=== PATIENT | male | born 1960 | race Caucasian/White ===

== ENCOUNTER 2020-01-25 11:29 | Outpatient (REF) | payer MEDICAID, SELFPAY ==
[2020-01-25 13:44] LABS: Hematocrit 44.1 % (42-52); Hemoglobin 14.1 g/dl (14.0-18.0); Mean Corpuscular Hemoglobin 29.8 pg (27.0-33.0); Mean Corpuscular Volume 93.2 fL (80-98); Mean Platelet Volume 9.4 fL (9.4-12.4); Platelet Count 313 X10*3/uL (160-400); Red Blood Count 4.73 X10*6/uL (4.60-5.80); White Blood Count 7.8 X10*3/uL (4.8-10.8)
[2020-01-25 14:17] LABS: Alanine Aminotransferase 34 U/L (0-40); Albumin Level 4.2 g/dL (3.5-5.0); Alkaline Phosphatase 72 U/L (39-117); Anion Gap 10 (12-20); Aspartate Amino Transferase 24 U/L (5-37); Bilirubin Direct 0.2 mg/dL (0.0-0.5); Bilirubin Total 0.3 mg/dL (0.0-1.0); Blood Urea Nitrogen 14 mg/dL (9-16); Calcium 8.8 mg/dL (8.4-10.2); Carbon Dioxide 29 mmol/L (22-29); Chloride 103 mmol/L (96-108); Cholesterol 230 mg/dL; Estimated Glomerular Filt Rate > 60; Glucose Fasting 150 mg/dL (60-99); HDL Cholesterol 61 mg/dL; LDL Cholesterol Calculated 138 mg/dl; Magnesium 2.2 mg/dL (1.6-2.6); Potassium 4.4 mmol/l (3.3-5.1); Sodium 138 mmol/L (135-145); Triglycerides 158 mg/dL
== END 2020-01-25 11:30 | disposition home or self-care (01) ==
LOC: HO.10HDL 11:29
DX: Z00.00 Encounter for general adult medical examination without abnormal findings (principal); I10 Essential (primary) hypertension
CPT/HCPCS: 36415; 80053; 80061; 80076; 82248; 83735; 85027

== ENCOUNTER 2020-11-14 10:41 | Outpatient (REF) | payer OTHER, SELFPAY ==
[2020-11-14 13:34] LABS: MANUAL DIFF FLAG NO
[2020-11-14 13:43] LABS: Basophils Percent Auto 0.3 % (0-2); Eosinophils Absolute Auto 0.3 X10*3/uL (0.0-0.4); Eosinophils Percent Auto 3.2 % (0-4); Hematocrit 43.2 % (42-52); Imm Gran Abs Auto 0.04 X10*3/uL (0.00-0.03); Imm Gran Pct Auto 0.4 % (0.0-0.4); Lymphocytes Absolute Auto 1.7 X10*3/uL (1.2-4.9); Lymphocytes Percent Auto 17.6 % (20-40); Mean Corpuscular HGB Conc 32.4 g/dl (31.0-36.0); Mean Corpuscular Hemoglobin 29.1 pg (27.0-33.0); Mean Corpuscular Volume 89.8 fL (80-98); Mean Platelet Volume 9.3 fL (9.4-12.4); Monocytes Absolute Auto 0.8 X10*3/uL (0.1-1.2); Monocytes Percent Auto 8.3 % (2-11); Neutrophils Absolute Auto 6.7 X10*3/uL (2.0-8.3); Neutrophils Percent Auto 70.2 % (45-73); Platelet Count 327 X10*3/uL (160-400); Red Blood Count 4.81 X10*6/uL (4.60-5.80); Red Cell Distribution Width 14.7 % (11.0-16.0); White Blood Count 9.5 X10*3/uL (4.8-10.8)
[2020-11-14 13:52] LABS: Estimated Average Glucose 131 mg/dL; Hemoglobin A1c % 6.2 %
[2020-11-14 14:11] LABS: Alanine Aminotransferase 26 U/L (0-40); Albumin Level 4.4 g/dL (3.5-5.0); Alkaline Phosphatase 91 U/L (39-117); Anion Gap 10 (12-20); Aspartate Amino Transferase 20 U/L (5-37); Bilirubin Total 0.5 mg/dL (0.0-1.0); Blood Urea Nitrogen 14 mg/dL (9-16); Calcium 9.4 mg/dL (8.4-10.2); Carbon Dioxide 27 mmol/L (22-29); Chloride 108 mmol/L (96-108); Cholesterol 223 mg/dL; Estimated Glomerular Filt Rate > 60; Glucose Random 143 mg/dL (60-115); HDL Cholesterol 61 mg/dL; LDL Cholesterol Calculated 139 mg/dl; Potassium 4.2 mmol/L (3.3-5.1); Sodium 141 mmol/L (135-145); Total Protein 7.6 g/dL (6.5-8.0); Triglycerides 116 mg/dL
[2020-11-14 14:39] LABS: Free T4 (Free Thyroxine) 0.92 ng/dL (0.71-1.85); Prostate Specific Antigen Scr 0.29 ng/mL (<0.05-4.0); Thyroid Stimulating Hormone 2.96 uIU/mL (0.32-4.0)
[2020-11-14 14:46] LABS: Folate 19.2 ng/mL (> or = 4.0); Vitamin B12 499 pg/mL (200-900)
== END 2020-11-14 10:42 | disposition home or self-care (01) ==
LOC: HO.10HDL 10:41
PROVIDERS: Visit Provider Internal Medicine
DX: Z12.5 Encounter for screening for malignant neoplasm of prostate (principal); R73.01 Impaired fasting glucose; E78.00 Pure hypercholesterolemia, unspecified; N48.6 Induration penis plastica; I10 Essential (primary) hypertension
CPT/HCPCS: 36415; 80053; 80061; 82607; 82746; 83036; 84153; 84439; 84443; 85025

== ENCOUNTER 2021-05-27 12:17 | Outpatient (REF) | payer OTHER, SELFPAY ==
[2021-05-27 13:49] LABS: Alanine Aminotransferase 21 U/L (0-40); Albumin Level 4.2 g/dL (3.5-5.0); Alkaline Phosphatase 84 U/L (39-117); Anion Gap 12 (12-20); Aspartate Amino Transferase 17 U/L (5-37); Bilirubin Total 0.5 mg/dL (0.0-1.0); Blood Urea Nitrogen 13 mg/dL (9-16); Calcium 9.3 mg/dL (8.4-10.2); Carbon Dioxide 27 mmol/L (22-29); Chloride 107 mmol/L (96-108); Cholesterol 236 mg/dL; Estimated Glomerular Filt Rate > 60; Glucose Random 143 mg/dL (60-115); HDL Cholesterol 57 mg/dL; LDL Cholesterol Calculated 150 mg/dl; Potassium 4.5 mmol/L (3.3-5.1); Sodium 141 mmol/L (135-145); Total Protein 7.5 g/dL (6.5-8.0); Triglycerides 147 mg/dL
[2021-05-27 14:07] LABS: Estimated Average Glucose 128 mg/dL; Hemoglobin A1c % 6.1 %
== END 2021-05-27 12:18 | disposition home or self-care (01) ==
LOC: HO.10HDL 12:17
PROVIDERS: Visit Provider Internal Medicine
DX: E78.00 Pure hypercholesterolemia, unspecified (principal); E11.65 Type 2 diabetes mellitus with hyperglycemia
CPT/HCPCS: 36415; 80053; 80061; 83036

== ENCOUNTER 2022-04-07 12:18 | Outpatient (REF) | payer OTHER, SELFPAY ==
[2022-04-07 14:32] LABS: Alanine Aminotransferase 11 U/L (0-40); Alkaline Phosphatase 82 U/L (39-117); Anion Gap 15 (12-20); Aspartate Amino Transferase 11 U/L (5-37); Bilirubin Total 0.3 mg/dL (0.0-1.0); Blood Urea Nitrogen 13 mg/dL (9-16); Calcium 9.1 mg/dL (8.4-10.2); Carbon Dioxide 26 mmol/L (22-29); Chloride 105 mmol/L (96-108); Cholesterol 216 mg/dL; Estimated Glomerular Filt Rate > 60; Glucose Random 136 mg/dL (60-115); HDL Cholesterol 48 mg/dL; LDL Cholesterol Calculated 142 mg/dl; Potassium 4.6 mmol/L (3.3-5.1); Sodium 141 mmol/L (135-145); Total Protein 7.8 g/dL (6.5-8.0); Triglycerides 132 mg/dL
[2022-04-07 14:45] LABS: Estimated Average Glucose 146 mg/dL; Hemoglobin A1c % 6.7 %
== END 2022-04-07 12:19 | disposition home or self-care (01) ==
LOC: HO.10HDL 12:18
PROVIDERS: Visit Provider Internal Medicine
DX: E78.00 Pure hypercholesterolemia, unspecified (principal)
CPT/HCPCS: 36415; 80053; 80061; 83036

== ENCOUNTER 2022-07-04 11:46 | Outpatient (REF) | payer OTHER, SELFPAY ==
[2022-07-04 13:18] LABS: MANUAL DIFF FLAG NO
[2022-07-04 13:27] LABS: Basophils Percent Auto 0.3 % (0-2); Eosinophils Absolute Auto 0.3 X10*3/uL (0.0-0.4); Eosinophils Percent Auto 3.8 % (0-4); Hematocrit 39.3 % (42.0-52.0); Hemoglobin 12.2 g/dl (14.0-18.0); Imm Gran Abs Auto 0.05 X10*3/uL (0.00-0.03); Imm Gran Pct Auto 0.6 % (0.0-0.4); Lymphocytes Absolute Auto 1.5 X10*3/uL (1.2-4.9); Lymphocytes Percent Auto 17.2 % (20-40); Mean Corpuscular Hemoglobin 26.7 pg (27.0-33.0); Monocytes Absolute Auto 0.8 X10*3/uL (0.1-1.2); Monocytes Percent Auto 8.5 % (2-11); Neutrophils Absolute Auto 6.2 x10*3/uL (2.0-8.3); Neutrophils Percent Auto 69.6 % (45-73); Platelet Count 405 X10*3/uL (160-400); Red Blood Count 4.57 X10*6/uL (4.60-5.80); Red Cell Distribution Width 16.1 % (11.0-16.0)
[2022-07-04 13:32] LABS: Estimated Average Glucose 131 mg/dL; Hemoglobin A1c % 6.2 %
[2022-07-04 13:47] LABS: Alanine Aminotransferase 13 U/L (0-40); Alkaline Phosphatase 87 U/L (39-117); Anion Gap 12 (12-20); Aspartate Amino Transferase 14 U/L (5-37); Bilirubin Total 0.3 mg/dL (0.0-1.0); Blood Urea Nitrogen 13 mg/dL (9-16); Calcium 8.9 mg/dL (8.4-10.2); Carbon Dioxide 26 mmol/L (22-29); Chloride 108 mmol/L (96-108); Cholesterol 208 mg/dL; Estimated Glomerular Filt Rate > 60; Glucose Random 131 mg/dL (60-115); HDL Cholesterol 53 mg/dL; LDL Cholesterol Calculated 138 mg/dl; Potassium 4.7 mmol/L (3.3-5.1); Sodium 141 mmol/L (135-145); Total Protein 7.4 g/dL (6.5-8.0); Triglycerides 87 mg/dL
[2022-07-04 14:07] LABS: Free T4 (Free Thyroxine) 0.88 ng/dL (0.71-1.85); Thyroid Stimulating Hormone 1.44 uIU/mL (0.32-4.0)
== END 2022-07-04 11:47 | disposition home or self-care (01) ==
LOC: HO.10HDL 11:46
PROVIDERS: Visit Provider Internal Medicine
DX: E11.65 Type 2 diabetes mellitus with hyperglycemia (principal); E78.00 Pure hypercholesterolemia, unspecified
CPT/HCPCS: 36415; 80053; 80061; 83036; 84439; 84443; 85025

== ENCOUNTER 2023-01-14 12:22 | Outpatient (REF) | payer OTHER, SELFPAY ==
[2023-01-14 13:28] LABS: MANUAL DIFF FLAG NO
[2023-01-14 13:45] LABS: Basophils Percent Auto 0.1 % (0-2); Eosinophils Absolute Auto 0.4 X10*3/uL (0.0-0.4); Eosinophils Percent Auto 4.2 % (0-4); Hematocrit 41.1 % (42.0-52.0); Imm Gran Abs Auto 0.04 X10*3/uL (0.00-0.03); Imm Gran Pct Auto 0.5 % (0.0-0.4); Immature Retic Fraction 11.8 % (2.3-13.4); Lymphocytes Absolute Auto 1.7 X10*3/uL (1.2-4.9); Lymphocytes Percent Auto 19.5 % (20-40); Mean Corpuscular HGB Conc 31.6 g/dl (31.0-36.0); Mean Corpuscular Hemoglobin 28.3 pg (27.0-33.0); Mean Corpuscular Volume 89.5 fL (80.0-98.0); Mean Platelet Volume 9.5 fL (9.4-12.4); Monocytes Absolute Auto 0.7 X10*3/uL (0.1-1.2); Monocytes Percent Auto 7.5 % (2-11); Neutrophils Percent Auto 68.2 % (45-73); Platelet Count 339 X10*3/uL (160-400); Red Blood Count 4.59 X10*6/uL (4.60-5.80); Red Cell Distribution Width 15.1 % (11.0-16.0); Retic HGB Equivalent 33.8 pg (30.0-35.0); Reticulocyte Percent 1.4 % (0.5-1.8); Reticulocytes Absolute 0.062 X10*6/uL (0.026-0.095); White Blood Count 8.8 X10*3/uL (4.8-10.8)
[2023-01-14 14:06] LABS: Iron 67 mcg/dL (45-160); Percent Iron Saturation 26 % (15-50); Total Iron Binding Capacity 259 mcg/dL (228-428); Unsaturated Iron Binding 192 ug/dL
[2023-01-14 14:25] LABS: Ferritin 162 ng/mL (20-250)
[2023-01-14 14:33] LABS: Folate 12.8 ng/mL (> or = 4.0); Vitamin B12 413 pg/mL (200-900)
== END 2023-01-14 12:23 | disposition home or self-care (01) ==
LOC: HO.10HDL 12:22
PROVIDERS: Visit Provider Internal Medicine
DX: D64.9 Anemia, unspecified (principal)
CPT/HCPCS: 36415; 82607; 82728; 82746; 83540; 85025; 85045

== ENCOUNTER 2023-01-16 14:12 | Outpatient (AMB) | payer OTHER, SELFPAY ==
--- NOTE | 2023-01-16 14:14 | A.OFFPC_ITS ---
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 Accompanied by: Self / Same As Patient Allergies Penicillins Allergy (Verified 01/16/23 14:19) Swelling Medication List - Last Reconciled 01/16/23 by Kamryn Gomez MD dorzolamide-timolol 22.3-6.8 mg/mL 1 drp ophthalmic (eye) BID losartan 100 mg PO DAILY 90 days pentoxifylline ER 400 mg PO TID sildenafil 100 mg PO DAILY PRN Tobacco use date assessed: 04/08/22 Dental Screening Dental Screen Date: 01/16/23 Did you have a dental visit in the last 12 months?: No Did you have a dental problem in the last 6 months where you did not have access to dental care?: No Was dental information given to patient?: Patient has dentist HPI 3 follow up HTN rebooked HPI Details 62-year-old male with controlled diabete s mellitus hypertension hypercholesterolemia GERD and anemia last seen in July 2022. Patient is up-to-date with Cologuard testing. [facility] Medical History (Updated 07/07/22 @ 16:14 by Kamryn Gomez MD) Colon cancer screening Overweight (BMI 25.0-29.9) Hypercholesterolemia Hypertension Social History Housing: House Alcohol intake: current Alcohol intake frequency: holidays/special occasions only Alcohol type: beer Patient Tobacco Use Status: Never used Tobacco e-Cigarette/Vaping Use: Never Used Second Hand Smoke Exposure: No service: No Current occupational status: employed Cognitive needs: No Hearing needs: No Vision needs: No Questionnaire Thrive Questionnaire Date Thrive assessed: 04/08/22 SKYLAR-7 AMB Questionnaire SKYLAR-7 Date SKYLAR - 7 assessed: 04/08/22 Source: Developed by Drs. Twin Soto, Milly Shook, Kermit Doss and colleagues, with an educational donato from [employer]. Physical exam (Primary Care) Vital Signs: Last Vital Signs BP 150/70 H 01/16/23 14:15 Pulse Ox 99 01/16/23 14:15 Oxygen Delivery Method Room Air 01/16/23 14:15 BMI result Body Mass Index 25.4 Tobacco/Smoking Status: Tobacco use Status Tobacco use date assessed 04/08/22 01/16/23 14:18 Patient Tobacco Use Status Never used Tobacco 01/16/23 14:18 e-Cigarette/Vaping Use Never Used 01/16/23 14:18 Thrive Assessment: Date of Thrive Assessment Date Thrive assessed 04/08/22 01/16/23 14:18 Const General: alert; No acute distress Eyes Conjunctivae: conjunctivae normal Resp Auscultation: clear to auscultation bilaterally Cardio Rate: regular rate Rhythm: regular rhythm GI Inspection: Yes normal to inspection Extrem General: Yes normal to inspection and No edema Results AMB Hemoglobin A1c AMB Hemoglobin A1c 6.9 % Last Edit by TIFF Crane on 01/16/23 14:38 Assessment and Plan Assessment & Plan (1) Anemia: Code(s): D64.9 - Anemia, unspecified Plan: Anemia is stable and improving iron and vitamin B12 are adequate. this is improving (2) Type 2 diabetes mellitus with hyperglycemia: Comment: Dr. Merly Loya and Sariah Code(s): E11.65 - Type 2 diabetes mellitus with hyperglycemia Plan: Decrease the amount of carbohydrate intake, pasta, bread, rice and potatoes are all sugar and that is aside from all the sweet stuff, remember that fruits are good but they are Sweet also. Hemoglobin A1c goal of less than 6.5. Patient on diet control decline new med (3) Hypertension: Code(s): I10 - Essential (primary) hypertension Plan: Continue with blood pressure medication. Decrease salt intake and exercise on losartan 100 mg once a day decline new med (4) Hypercholesterolemia: Code(s): E78.00 - Pure hypercholesterolemia, unspecified Plan: Avoid fried foods, chicken skin, eggs, butter margarine, pastries and meat. Be it pork or beef they have a lot of cholesterol LDL goal of less than 100 and triglyceride of less than 150. (5) GERD (gastroesophageal reflux disease): Code(s): K21.9 - Gastro-esophageal reflux disease without esophagitis Plan: Avoid the foods that causes that usually spicy foods, tomato products, juices, coffee, soda and foods that your sensitive to. After eating do not lie down, allow 3-4 hours before in lie down. And keep the head of bed above 30 degrees to avoid the acid from going up. Orders: Orders Hemoglobin A1c 3 Months E11.65 - Type 2 diabetes mellitus with hyperglycemia Lipid Panel 3 Months E78.00 - Pure hypercholesterolemia, unspecified Comprehensive Met. Panel 3 Months E78.00 - Pure hypercholesterolemia, unspecified AMB Hemoglobin A1c Today E11.65 - Type 2 diabetes mellitus with hyperglycemia Coding Level of Care Code Est Pt Level 4 (23445) Diagnoses Anemia D64.9 Type 2 diabetes mellitus with hyperglycemia E11.65 Hypertension I10 Hypercholesterolemia E78.00 GERD (gastroesophageal reflux disease) K21.9
[2023-01-16 14:15] VITALS: BP 150/70; O2SAT 99; BMI 25.4
== END 2023-01-16 14:54 | disposition home or self-care (01) ==
PROVIDERS: PCP Internal Medicine; Visit Provider Internal Medicine
DX: D64.9 Anemia, unspecified (principal); E11.65 Type 2 diabetes mellitus with hyperglycemia; I10 Essential (primary) hypertension; E78.00 Pure hypercholesterolemia, unspecified; K21.9 Gastro-esophageal reflux disease without esophagitis
CPT/HCPCS: 83036; 99214

== ENCOUNTER 2023-10-16 12:11 | Outpatient (REF) | payer OTHER, SELFPAY ==
[2023-10-16 13:41] LABS: Alanine Aminotransferase 15 U/L (0-40); Albumin Level 4.2 g/dL (3.5-5.0); Alkaline Phosphatase 91 U/L (39-117); Anion Gap 12 (12-20); Aspartate Amino Transferase 16 U/L (5-37); Bilirubin Total 0.3 mg/dL (0.0-1.0); Blood Urea Nitrogen 15 mg/dL (9-16); Calcium 9.2 mg/dL (8.4-10.2); Carbon Dioxide 25 mmol/L (22-29); Chloride 108 mmol/L (96-108); Cholesterol 194 mg/dL (<200); Estimated Glomerular Filt Rate > 60; Glucose Random 142 mg/dL (60-115); HDL Cholesterol 55 mg/dL (>40); LDL Cholesterol Calculated 118 mg/dL (<100); Potassium 4.3 mmol/L (3.3-5.1); Sodium 141 mmol/L (135-145); Total Protein 7.8 g/dL (6.5-8.0); Triglycerides 106 mg/dL (<150)
[2023-10-16 13:57] LABS: Estimated Average Glucose 128 mg/dL; Hemoglobin A1C 148.4046 umol/L; Hemoglobin A1c % 6.1 % (<6.0)
== END 2023-10-16 12:12 | disposition home or self-care (01) ==
LOC: HO.10HDL 12:11
PROVIDERS: Visit Provider Internal Medicine
DX: E78.00 Pure hypercholesterolemia, unspecified (principal); E11.65 Type 2 diabetes mellitus with hyperglycemia
CPT/HCPCS: 36415; 80053; 80061; 83036

== ENCOUNTER 2023-10-22 14:20 | Outpatient (AMB) | payer OTHER, SELFPAY ==
--- NOTE | 2023-10-22 14:20 | A.OFFPC_ITS ---
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 Last seen in 01/26/2023. Cologuard negative 05/26/2021. [facility] Medical History (Updated 07/07/22 @ 16:14 by Kamryn Gomez MD) Colon cancer screening Overweight (BMI 25.0-29.9) Hypercholesterolemia Hypertension Social History Housing: House Alcohol intake: current Alcohol intake frequency: holidays/special occasions only Alcohol type: beer Patient Tobacco Use Status: Never used Tobacco e-Cigarette/Vaping Use: Never Used Second Hand Smoke Exposure: No service: No Current occupational status: employed Cognitive needs: No Hearing needs: No Vision needs: No Questionnaire PHQ-9 Over the last 2 weeks, how often have you been bothered by any of the following problems? 1. Little interest or pleasure in doing things: not at all 2. Feeling down, depressed, or hopeless: not at all 3. Trouble falling or staying asleep, or sleeping too much: not at all 4. Feeling tired or having little energy: not at all 5. Poor appetite or overeating: not at all 6. Feeling bad about yourself - or that you are a failure or have let yourself or your family down: not at all 7. Trouble concentrating on things, such as reading the newspaper or watching television: not at all 8. Moving or speaking so slowly that other people could have noticed. Or the opposite - being so fidgety or restless that you have been moving around a lot more than usual: not at all 9. Thoughts that you would be better off or of hurting yourself in some way: not at all Total score: 0 Depression Screening Interpretation: Negative Depression Screening Done: Yes Source: Developed by Drs. Twin Soto, Milly Shook, Kermit Doss and colleagues, with an educational donato from [employer]. Thrive Questionnaire Date Thrive assessed: 10/22/23 I am a: Patient What is your living situation today?: I have a steady place to live THRIVE Score: 0 AUDIT C Alcohol Use Questionnaire (AUDIT-C) 1. How often do you have a drink containing alcohol?: Monthly or less 2. How many drinks containing alcohol do you have on a typical day when you are drinking?: 1 or 2 3. How often do you have six or more drinks on one occasion?: Never Total Score: 1 SKYLAR-7 AMB Questionnaire SKYLAR-7 Date SKYLAR - 7 assessed: 10/22/23 Feeling nervous, anxious, or on edge: 0 = Not at all Not being able to stop or control worryin = Not at all Worrying too much about different things: 0 = Not at all Trouble relaxin = Not at all Being so restless that it is hard to sit still: 0 = Not at all Becoming easily annoyed or irritable: 0 = Not at all Feeling afraid as if something awful might happen: 0 = Not at all Total SKYLAR-7 score (0-4 normal; 5-9 mild; 10-14 moderate; 15-21 severe): 0 Source: Developed by Drs. Twin Soto, Milly Shook, Kermit Doss and colleagues, with an educational donato from [employer]. SKYLAR-7 Assessment Billing SKYLAR-7 Assessment Tool: SKYLAR-7 Assessment 43576 Physical exam (Primary Care) Vital Signs: Last Vital Signs Pulse 78 10/22/23 14:21 BP 134/70 10/22/23 14:21 Pulse Ox 98 10/22/23 14:21 Oxygen Delivery Method Room Air 10/22/23 14:21 BMI result Body Mass Index 24.8 Tobacco/Smoking Status: Tobacco use Status Tobacco use date assessed 10/22/23 10/22/23 14:23 Patient Tobacco Use Status Never used Tobacco 10/22/23 14:21 e-Cigarette/Vaping Use Never Used 10/22/23 14:21 PHQ-9: PHQ-9 Score PHQ-9: Total score 0 10/22/23 14:23 Depression Screening Interpretation: Negative Thrive Assessment: Date of Thrive Assessment Date Thrive assessed 10/22/23 10/22/23 14:23 Const General: alert; No acute distress Eyes Conjunctivae: conjunctivae normal Resp Auscultation: clear to auscultation bilaterally Cardio Rate: regular rate Rhythm: regular rhythm GI Inspection: Yes normal to inspection Extrem General: Yes normal to inspection and No edema Assessment and Plan Assessment & Plan (1) Anemia: Code(s): D64.9 - Anemia, unspecified Plan: Resolving and continue with monitoring (2) Type 2 diabetes mellitus with hyperglycemia: Comment: Dr. [facility] Code(s): E11.65 - Type 2 diabetes mellitus with hyperglycemia Plan: Decrease the amount of carbohydrate intake, pasta, bread, rice and potatoes are all sugar and that is aside from all the sweet stuff, remember that fruits are good but they are Sweet also. Hemoglobin A1c goal of less than 6.5. Diet controlled (3) Hypertension: Code(s): I10 - Essential (primary) hypertension Plan: Continue with blood pressure medication. Decrease salt intake and exercise on losartan 100 mg once a day (4) Hypercholesterolemia: Code(s): E78.00 - Pure hypercholesterolemia, unspecified Plan: Avoid fried foods, chicken skin, eggs, butter margarine, pastries and meat. Be it pork or beef they have a lot of cholesterol LDL goal of less than 100 and triglyceride of less than 150. (5) GERD (gastroesophageal reflux disease): Code(s): K21.9 - Gastro-esophageal reflux disease without esophagitis Plan: Avoid the foods that causes that usually spicy foods, tomato products, juices, coffee, soda and foods that your sensitive to. After eating do not lie down, allow 3-4 hours before in lie down. And keep the head of bed above 30 degrees to avoid the acid from going up. Medications: New tadalafil (Cialis) administer approximately 30min before sexual activity; do not use more than 1 dose per 24hrs 20 mg PO Q OTHER DAY PRN 14 tabs 8RF sexual activity N52.9 - Male erectile dysfunction, unspecified Discontinued sildenafil Discontinued Reason: Doctor's Order 100 mg PO DAILY PRN 15 tabs 5RF sexual activity N48.6 - Induration penis plastica Coding Level of Care Code Est Pt Level 4 (92100) Diagnoses Anemia D64.9 Type 2 diabetes mellitus with hyperglycemia E11.65 Hypertension I10 Hypercholesterolemia E78.00 GERD (gastroesophageal reflux disease) K21.9 Additional Codes SKYLAR-7 Assessment Billing - SKYLAR-7 Assessment Tool: SKYLAR-7 Assessment 11337 ([id number])
[2023-10-22 14:21] VITALS: BP 134/70; PULSE 78; O2SAT 98; BMI 24.8
== END 2023-10-22 15:35 | disposition home or self-care (01) ==
PROVIDERS: PCP Internal Medicine; Visit Provider Internal Medicine
DX: D64.9 Anemia, unspecified (principal); E11.65 Type 2 diabetes mellitus with hyperglycemia; I10 Essential (primary) hypertension; E78.00 Pure hypercholesterolemia, unspecified; K21.9 Gastro-esophageal reflux disease without esophagitis
CPT/HCPCS: 99214

== ENCOUNTER 2024-04-14 11:00 | Outpatient (AMB) | payer OTHER, SELFPAY ==
--- NOTE | 2024-04-14 11:02 | A.OFFPC_ITS ---
Intake Visit Reasons: Itchiness Allergies Penicillins Allergy (Verified 04/14/24 11:03) Swelling Tobacco use date assessed: 04/14/24 Dental Screening Dental Screen Date: 04/14/24 Did you have a dental visit in the last 12 months?: Yes Did you have a dental problem in the last 6 months where you did not have access to dental care?: No Was dental information given to patient?: Patient has dentist HPI Itchiness HPI Details skin problem zyrtec and benedryl given, The patient is a 63-year-old male presenting with generalized pruritus. 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 Wright, characterized by redness and irritation upon stroking or irritation of the skin. Despite following a regimen that included taking Benadryl three times a day and Zyrtec once a day, the itching has significantly worsened recently, impacting his sleep. Past treatment with prednisone was helpful but exacerbated his blood glucose levels. [id number] remedies such as Aveeno body wash and Curacel lotion have been used without lasting relief. T he issue has persisted despite these interventions, indicating an ongoing struggle with dry and itchy skin, especially during the winter months. - Integumentary: Reports widespread itch ing without visible rash. [facility] Medical History (Updated 04/14/24 @ 11:40 by Kamryn Gomez MD) Colon cancer screening Overweight (BMI 25.0-29.9) Hypercholesterolemia Hypertension Social History Housing: House Alcohol intake: current Alcohol intake frequency: holidays/special occasions only Alcohol type: beer Patient Tobacco Use Status: Never used Tobacco Tobacco use type: Cigarette e-Cigarette/Vaping Use: Never Used Second Hand Smoke Exposure: No service: No Current occupational status: employed Cognitive needs: No Hearing needs: No Vision needs: No Questionnaire PHQ-9 Over the last 2 weeks, how often have you been bothered by any of the following problems? 1. Little interest or pleasure in doing things: not at all 2. Feeling down, depressed, or hopeless: not at all 3. Trouble falling or staying asleep, or sleeping too much: not at all 4. Feeling tired or having little energy: not at all 5. Poor appetite or overeating: not at all 6. Feeling bad about yourself - or that you are a failure or have let yourself or your family down: not at all 7. Trouble concentrating on things, such as reading the newspaper or watching television: not at all 8. Moving or speaking so slowly that other people could have noticed. Or the opposite - being so fidgety or restless that you have been moving around a lot more than usual: not at all 9. Thoughts that you would be better off or of hurting yourself in some way: not at all Total score: 0 Depression Screening Interpretation: Negative Depression Screening Done: Yes Source: Developed by Drs. Twin Soto, Milly Shook, Kermit Doss and colleagues, with an educational donato from [employer]. Thrive Questionnaire Date Thrive assessed: 04/14/24 I am a: Patient What is your living situation today?: I have a steady place to live Within the past 12 months, did the food you bought not last and you didn't have the money to get more?: Never true Within the past 12 months, did you worry whether your food would run out before you got money to buy more?: Never true Do you have trouble paying for medicines?: No Do you have trouble getting transportation to medical appointments?: No Do you have trouble paying your heating and electricity bill?: No Do you have trouble taking care of your child, family member or friend?: No Do you have trouble with day-to-day activities such as bathing, preparing meals, shopping, managing finances, etc.?: No Are you currently unemployed and looking for a job?: No Are you interested in more education?: No Currently or been in a relationship where the following occur: No concerns reported THRIVE Score: 0 AUDIT C Alcohol Use Questionnaire (AUDIT-C) 1. How often do you have a drink containing alcohol?: Monthly or less 2. How many drinks containing alcohol do you have on a typical day when you are drinking?: 1 or 2 3. How often do you have six or more drinks on one occasion?: Never Total Score: 1 SKYLAR-7 AMB Questionnaire SKYLAR-7 Date SKYLAR - 7 assessed: 04/14/24 Feeling nervous, anxious, or on edge: 0 = Not at all Not being able to stop or control worryin = Not at all Worrying too much about different things: 0 = Not at all Trouble relaxin = Not at all Being so restless that it is hard to sit still: 0 = Not at all Becoming easily annoyed or irritable: 0 = Not at all Feeling afraid as if something awful might happen: 0 = Not at all Total SKYLAR-7 score (0-4 normal; 5-9 mild; 10-14 moderate; 15-21 severe): 0 Source: Developed by Drs. Twin Soto, Milly Shook, Kermit Doss and colleagues, with an educational donato from [employer]. SKYLAR-7 Assessment Billing SKYLAR-7 Assessment Tool: SKYLAR-7 Assessment 55911 Physical exam (Primary Care) Tobacco/Smoking Status: Tobacco use Status Tobacco use date assessed 04/14/24 04/14/24 11:03 Patient Tobacco Use Status Never used Tobacco 04/14/24 11:03 Tobacco use type Cigarette 04/14/24 11:03 e-Cigarette/Vaping Use Never Used 04/14/24 11:03 PHQ-9: PHQ-9 Score PHQ-9: Total score 0 04/14/24 11:03 Depression Screening Interpretation: Negative Thrive Assessment: Date of Thrive Assessment Date Thrive assessed 04/14/24 04/14/24 11:03 Currently or been in a relationship where the following occur: No concerns reported Telehealth Telehealth Telehealth Platform: Telephone Location of provider rendering services: practice address Location of patient: address on file Patient Identification confirmed using: Name, : Yes Telehealth method: voice only Patient verbally consented to treatment: Yes Patient verbally consented to billing insurance company: Yes Patient informed of any privacy concerns related to visit: Yes Minutes spent on Phone/Video with Pt.: 15 Coding Level of Care Code Tele Est Pt Level 3 (35017) Diagnoses Urticaria L50.9 Additional Codes SKYLAR-7 Assessment Billing - SKYLAR-7 Assessment Tool: SKYLAR-7 Assessment 24929 ([id number]) Assessment & Plan Assessment & Plan (1) Urticaria: Code(s): L50.9 - Urticaria, unspecified Category: Medical Plan - Prescribe a short course of oral prednisone while advising on the potential risk of elevated blood glucose levels. - Recommend continuation and regular application of thick emollients such as Aquaphor or Aveeno after bathing, with applications repeated in the afternoon and evening. - Consider consultation with a survey analyst if symptoms persist or worsen. During the visit, I discussed the current exacerbation of the patient's pruritus and past relief with a short course of prednisone. I emphasized the risks associated with steroid use, particularly hyperglycemia, and advised taking the medication with food. The importance of consistent use of emollients for dry ski n, particularly during winter, was stressed. We also addressed alternative inhaler options due to changes in insurance coverage, submitting a prescription for Spiriva which might be covered. I provided guidance on preventative measures during the flu season, particularly due to his history of asthma. - Use prescribed prednisone as directed, with food. - Apply Aveeno or Aquaphor to the skin generously after bathing, and reapply in the afternoon and evening. - Avoid scratching and keep skin moisturized. - Use portal or contact practice directly for any queries. - Be cautious during flu season; avoid crowded places, wear masks, and consider vitamin C supplementation. - Monitor glucose levels closely while using steroids. Medications: New prednisone 4 tabs QD x 2 days then 3 tabs QD x 2 days then 2 tabs Qd x 2 days then 1 tab QD x 2 days PO daily; 20 tabs 0RF J45.909 - Unspecified asthma, uncomplicated, L50.9 - Urticaria, unspecified
== END 2024-04-14 12:10 | disposition home or self-care (01) ==
LOC: HO.HMCH 11:00
PROVIDERS: PCP Internal Medicine; Visit Provider Internal Medicine
DX: L50.9 Urticaria, unspecified (principal)

== ENCOUNTER → 2024-04-14 11:00 | Outpatient (BNVA) | payer OTHER, SELFPAY | PROVIDERS: PCP Internal Medicine; Visit Provider Internal Medicine | DX: L50.9 Urticaria, unspecified (principal) | CPT/HCPCS: 96127 ==

== ENCOUNTER 2024-04-29 15:18 | Outpatient (AMB) | payer OTHER, SELFPAY ==
--- NOTE | 2024-04-29 15:33 | A.OFFVIS_ITS ---
Intake Visit Reasons: ED Intake Note: Pt presents to the office today as a new pt for erectile dysfunction Allergies Penicillins Allergy (Verified 04/29/24 15:34) Swelling HPI Comments Details: Hedy is a pleasant Yi male. He is a patient of Dr. Gomez. He seen for the following urologic conditions - erectile dysfunction in setting of diabetes - Peyronie's disease Erectile dysfunction in setting of diabetes Prior use of sildenafil and tadalafil in on demand setting No previous use of daily Previous reasonable responses which have gradually diminished over the past year Initiate daily tadalafil with on demand sildenafil Three-month follow-up tele Peyronie's disease Subclinical Has been stable with long-term management of vitamin-E 400 units daily Had been started on pentoxifylline t.i.d. with PCP Does have some heartburn Initiate b.i.d. therapy PFSH Medical History Colon cancer screening Overweight (BMI 25.0-29.9) Hypercholesterolemia Hypertension Social History Housing: House Alcohol intake: current Alcohol intake frequency: holidays/special occasions only Alcohol type: beer Patient Tobacco Use Status: Never used Tobacco Tobacco use type: Cigarette e-Cigarette/Vaping Use: Never Used Second Hand Smoke Exposure: No service: No Current occupational status: employed Cognitive needs: No Hearing needs: No Vision needs: No Review of Systems Const Denies chills and Denies fever(s) Card Reports no additional complaints and Denies syncope Resp Denies cough GI Denies abdominal pain and Denies heartburn Reports as per HPI and Denies change in libido Neuro Denies syncope Psych Denies change in libido Endo Denies change in libido Physical Exam Const General: cooperative, healthy appearing, comfortable and no acute distress Orientation/consciousness: patient oriented x3 HEENT Face and sinus: Yes normal facial exam Mouth: moist mucous membranes Neck Neck: Yes normal visual inspection, Yes full ROM and Yes trachea midline Chest Chest palpation & inspection: normal inspection of the chest Resp Effort & Inspection: normal respiratory effort, able to speak in complete sentences and no respiratory distress GI Inspection: Yes normal to inspection Back/Spine/Pelvis Cervical Spine: normal cervical lordosis Thoracic/Lumbar Spine: thoracic and lumbar spine normal to inspection Skin General skin exam: no rashes or lesions noted Neuro General: patient oriented x3, gait normal, tone normal and moves all extremities Extrem General: Yes normal to inspection and Yes capillary refill normal Assessment & Plan Assessment & Plan (1) Peyronie disease: Code(s): N48.6 - Induration penis plastica Category: Medical (2) Erectile dysfunction: Code(s): N52.9 - Male erectile dysfunction, unspecified Category: Medical Plan Three-month follow-up tele Medications: New tadalafil [facility] [id number] 5 mg PO DAILY 90 days 90 tabs 0RF sexual activity E11.69 - Type 2 diabetes mellitus with other specified complication, N52.1 - Erectile dysfunction due to diseases classified elsewhere Patient Instructions: This note is constructed using voice recognition software. While every effort has been made to ensure accuracy piling cutter errors may have been included. Imaging studies, laboratory and physical exam results were discussed and revie wed in detail. No major barriers to patient understanding were identified. An opportunity to ask questions regarding the treatment plan was provided. All questions were answered. The patient expressed understanding and agreement with the above treatment plan. The patient is aware they should contact our office by phone for worsening of their current condition or the appearance of new urologic symptoms. Compliance is encouraged with any medications and followup testing that is ordered. It is a privilege to participate in the urologic care of your patient. If you have any questions or concerns regarding treatment for the above conditions, or other urologic issues, please do not hesitate to contact me. The office telephone contact is [phone]. Sincerely, Dr Luis Luna MD, [facility] - Urology Compassionate Specialist Care for the Genitourinary System Coding Level of Care Code New Pt Level 4 (28879) Diagnoses Peyronie disease N48.6 Erectile dysfunction N52.9
== END 2024-04-29 16:26 | disposition home or self-care (01) ==
PROVIDERS: PCP Internal Medicine; Visit Provider Urology
DX: N48.6 Induration penis plastica (principal); N52.9 Male erectile dysfunction, unspecified
CPT/HCPCS: 99204

== ENCOUNTER → 2024-04-29 15:18 | Outpatient (BNVA) | payer OTHER, SELFPAY | PROVIDERS: PCP Internal Medicine; Visit Provider Urology | DX: N52.9 Male erectile dysfunction, unspecified (principal); N48.6 Induration penis plastica | CPT/HCPCS: 99202 ==

== ENCOUNTER 2024-05-19 13:42 | Outpatient (AMB) | payer OTHER, SELFPAY ==
[2024-05-19 13:47] VITALS: BP 124/80; PULSE 97; O2SAT 98; BMI 25.7
--- NOTE | 2024-05-19 13:47 | A.OFFPC_ITS ---
Vital Signs 05/19/24 13:47 Height 5 ft 10 in Weight 179 lb 6 oz BMI 25.7 BP 124/80 Blood Pressure Location Lt brachial Position Sitting Pulse 97 Pulse Source Pulse Oximeter Pulse Oximetry (%) 98 Oxygen Delivery Method Room Air Intake Visit Reasons: annual exam [employer] Required: No Accompanied by: Self / Same As Patient Allergies Penicillins Allergy (Verified 05/19/24 13:47) Swelling Medication List - Last Reconciled 05/19/24 by Kamryn Gomez MD dorzolamide-timolol 22.3-6.8 mg/mL 1 drp ophthalmic (eye) BID losartan 100 mg PO DAILY 90 days pentoxifylline ER 400 mg PO TID sennosides-docusate sodium 8.6-50 mg (Senna Plus) 2 tab-caps PO BEDTIME tadalafil (Cialis) 20 mg PO Q OTHER DAY PRN tadalafil 5 mg PO DAILY 90 days Tobacco use date assessed: 05/19/24 Dental Screening Dental Screen Date: 05/19/24 Did you have a dental visit in the last 12 months?: Yes Did you have a dental problem in the last 6 months where you did not have access to dental care?: No Was dental information given to patient?: Patient has dentist [facility] Medical History (Updated 05/19/24 @ 15:10 by Kamryn Gomez MD) Colon cancer screening Overweight (BMI 25.0-29.9) Hypercholesterolemia Hypertension Family History (Updated 05/19/24 @ 15:11 by Kamryn Gomez MD) Mother CVA (cerebral vascular accident) Social History (Updated 05/19/24 @ 15:12 by Kamryn Gomez MD) Housing: House Alcohol intake: current Alcohol intake frequency: holidays/special occasions only Alcohol type: beer Comment: once a week 2 drinks Patient Tobacco Use Status: Never used Tobacco Tobacco use type: Cigarette e-Cigarette/Vaping Use: Never Used Second Hand Smoke Exposure: No service: No Current occupational status: employed Cognitive needs: No Hearing needs: No Vision needs: No Questionnaire PHQ-9 Over the last 2 weeks, how often have you been bothered by any of the following problems? 1. Little interest or pleasure in doing things: nearly every day 2. Feeling down, depressed, or hopeless: nearly every day 3. Trouble falling or staying asleep, or sleeping too much: not at all 4. Feeling tired or having little energy: not at all 5. Poor appetite or overeating: not at all 6. Feeling bad about yourself - or that you are a failure or have let yourself or your family down: not at all 7. Trouble concentrating on things, such as reading the newspaper or watching television: not at all 8. Moving or speaking so slowly that other people could have noticed. Or the opposite - being so fidgety or restless that you have been moving around a lot more than usual: not at all 9. Thoughts that you would be better off or of hurting yourself in some way: not at all Total score: 6 Source: Developed by Drs. Twin Soto, Milly Shook, Kermit Doss and colleagues, with an educational donato from [employer]. Thrive Questionnaire Date Thrive assessed: 05/19/24 I am a: Patient What is your living situation today?: I have a steady place to live Within the past 12 months, did the food you bought not last and you didn't have the money to get more?: Never true Within the past 12 months, did you worry whether your food would run out before you got money to buy more?: I choose not to answer this question Do you have trouble paying for medicines?: No Do you have trouble getting transportation to medical appointments?: No Do you have trouble paying your heating and electricity bill?: No Do you have trouble taking care of your child, family member or friend?: No Do you have trouble with day-to-day activities such as bathing, preparing meals, shopping, managing finances, etc.?: I choose not to answer this question Are you currently unemployed and looking for a job?: No Are you interested in more education?: No Please select the resources that you would like help with: None Currently or been in a relationship where the following occur: No concerns reported THRIVE Score: 0 AUDIT C Alcohol Use Questionnaire (AUDIT-C) 1. How often do you have a drink containing alcohol?: 2-4 times a month 2. How many drinks containing alcohol do you have on a typical day when you are drinking?: 1 or 2 3. How often do you have six or more drinks on one occasion?: Never Total Score: 2 SKYLAR-7 AMB Questionnaire SKYLAR-7 Date SKYLAR - 7 assessed: 05/19/24 Feeling nervous, anxious, or on edge: 0 = Not at all Not being able to stop or control worryin = Not at all Worrying too much about different things: 0 = Not at all Trouble relaxin = Not at all Being so restless that it is hard to sit still: 0 = Not at all Becoming easily annoyed or irritable: 0 = Not at all Feeling afraid as if something awful might happen: 0 = Not at all Total SKYLAR-7 score (0-4 normal; 5-9 mild; 10-14 moderate; 15-21 severe): 0 Source: Developed by Drs. Twin Soto, Milly Shook, Kermit Doss and colleagues, with an educational donato from [employer]. Review of Systems Const Denies poor appetite and Denies weakness Eyes Denies no additional complaints ENT Reports Normal hearing present, Denies dizziness, Denies nasal congestion, Denies tinnitus and Denies sore throat Card Denies chest pain, Denies syncope, Denies rapid heart rate and Denies dyspnea Resp Denies cough and Denies dyspnea GI Denies change in stool character, Reports constipation, Denies diarrhea, Denies nausea and Denies vomiting Denies dysuria and Denies urinary frequency Neuro Reports Normal hearing present, Denies confusion, Denies dizziness, Denies syncope and Denies weakness Psych Denies confusion Physical exam (Primary Care) Vital Signs: Last Vital Signs Pulse 97 05/19/24 13:47 BP 124/80 05/19/24 13:47 Pulse Ox 98 05/19/24 13:47 Oxygen Delivery Method Room Air 05/19/24 13:47 BMI result Body Mass Index 25.7 Tobacco/Smoking Status: Tobacco use Status Tobacco use date assessed 05/19/24 05/19/24 13:51 Patient Tobacco Use Status Never used Tobacco 05/19/24 15:12 Tobacco use type Cigarette 05/19/24 15:12 e-Cigarette/Vaping Use Never Used 05/19/24 15:12 PHQ-9: PHQ-9 Score PHQ-9: Total score 6 05/19/24 14:34 Thrive Assessment: Date of Thrive Assessment Date Thrive assessed 03/13/25 03/13/25 13:51 Currently or been in a relationship where the following occur: No concerns rep orted Const General: No confusion Orientation/consciousness: No confusion HENMT Head: Yes normocephalic Ears: external ears normal and TM's normal bilaterally Face and sinus: Yes normal facial exam Mouth: moist mucous membranes Throat: Yes tonsils normal Eyes Conjunctivae: conjunctivae normal Pupils: Equal, round and reactive pupils present and Pupil accommodation reflex normal Direct Ophthalmoscopy: normal light reflex Neck Neck: No lymphadenopathy Thyroid: Thyroid normal Chest Chest palpation & inspection: normal inspection of the chest Resp Effort & Inspection: normal respiratory effort and no audible wheezes Auscultation: clear to auscultation bilaterally, no crackles, no wheezes and lung sounds not diminished Cardio Rate: regular rate Rhythm: regular rhythm Peripheral pulses: radial pulses present and dorsalis pedis present GI Other: declined rectal Palpation (GI): no masses Auscultation: normal bowel sounds and normoactive bowel sounds Rectal Exam - Male: Yes deferred Male General Exam: Yes normal external exam Skin General skin exam: no rashes or lesions noted Rashes: no rashes Neuro General: No confusion Cranial nerves: Yes Equal, round and reactive pupils present and Yes Normal hearing present Cognition (Neuro): normal cognition Gait exam (Neuro): Normal gait present Motor exam (neuro): 5/5 motor strength present throughout Deep tendon reflexes (DTR's): Right brachioradialis reflex intensity grade: 2+, Left brachioradialis reflex intensity grade: 2+, Right patellar reflex intensity grade: 2+ and Left patellar reflex intensity grade: 2+ Extrem General: No edema Coding Level of Care Code Est Pt Prev Care 40-64y(97225) Diagnoses Annual physical exam Z00.00 Type 2 diabetes mellitus with hyperglycemia E11.65 Hypercholesterolemia E78.00 Hypertension I10 Erectile dysfunction N52.9 GERD (gastroesophageal reflux disease) K21.9 Colon cancer screening Z12.11 Rosacea L71.9 Assessment & Plan Assessment & Plan (1) Annual physical exam: Code(s): Z00.00 - Encounter for general adult medical examination without abnormal findings Category: Medical Plan: Patient is advised to eat healthy, keep well hydrated, keep active and have adequate sleep. (2) Type 2 diabetes mellitus with hyperglycemia: Comment: Dr. Merly Ray Code(s): E11.65 - Type 2 diabetes mellitus with hyperglycemia Category: Medical Plan: Decrease the amount of carbohydrate intake, pasta, bread, rice and potatoes are all sugar and that is aside from all the sweet stuff, remember that fruits are good but they are Sweet also. Hemoglobin A1c goal of less than 6.5 diet control (3) Hypercholesterolemia: Code(s): E78.00 - Pure hypercholesterolemia, unspecified Category: Medical Plan: Avoid fried foods, chicken skin, eggs, butter margarine, pastries and meat. Be it pork or beef they have a lot of cholesterol LDL goal of less than 100 and triglyceride of less than 150 (4) Hypertension: Code(s): I10 - Essential (primary) hypertension Category: Medical Plan: Continue with blood pressure medication. Decrease salt intake and exercise on losartan 100 mg once a day (5) Erectile dysfunction: Code(s): N52.9 - Male erectile dysfunction, unspecified Category: Medical Plan: Patient follows up with urology on tadalafil and pentoxifylline for Peyronie's (6) GERD (gastroesophageal reflux disease): Code(s): K21.9 - Gastro-esophageal reflux disease without esophagitis Category: Medical Plan: Avoid the foods that causes that usually spicy foods, tomato products, juices, coffee, soda and foods that your sensitive to. After eating do not lie down, allow 3-4 hours before in lie down. And keep the head of bed above 30 degrees to avoid the acid from going up. (7) Colon cancer screening: Code(s): Z12.11 - Encounter for screening for malignant neoplasm of colon Category: Medical (8) Rosacea: Code(s): L71.9 - Rosacea, unspecified Category: Medical Plan History of Present Illness The patient is a 63-year-old male presenting for a routine physical examination and follow-up on his chronic conditions. He has a history of hypertension, currently managed with losartan 100 mg daily, and has reported an improvement in his blood pressure. However, he has not been monitoring his blood pressure at home. Hypercholesterolemia is controlled with the goal of achieving specific lipid targets. The patient manages his type 2 diabetes mellitus through diet, with a recent hemoglobin A1c of 6.4%, aiming for a goal of less than 6.5%. His last blood work indicated anemia and a serum creatinine level of 420 ?mol/L as of October 2022, with a January 2023 follow-up showing a hemoglobin A1c improvement to 6.4%. For erectile dysfunction, the patient is currently using sildenafil and tadalafil, although he experienced heartburn when taking a 5 mg dose of tadalafil. The patient has subclinical Peyronie's disease, which has been managed with vitamin E and pentoxifylline. He reports significant coughing during colder weather, possibly due to the effects of losartan, as he has read it can cause cough as a side effect. The patient is a 63-year-old male presenting for a routine physical examination and follow-up on several chronic conditions, including hypertension, hypercholesterolemia, type 2 diabetes mellitus, urticaria, erectile dysfunction, and subclinical Peyronie's disease. His hypertension is managed with losartan 100 mg daily, although he reports an improvement in his condition, he has not been consistently monitoring his blood pressure at home. His type 2 diabetes mellitus is currently diet-controlled, with a hemoglobin A1c of 6.4% as of his last blood work in January 2023. He e xperienced an episode of urticaria in April 2024, which improved with medication. For erectile dysfunction, he was prescribed sildenafil and tadalafil, with noted heartburn occurring after a 5 mg dose. His Peyronie's disease is being managed with vitamin E and pentoxifylline for pain, though cold weather exacerbates a persistent cough, prompting the patient to request a vitamin D supplement once per week. The patient recalls being last seen by urology in April for erectile dysfunction, where he was prescribed sildenafil and advised on tadalafil management following the emergence of heartburn when he increased the tadalafil dose. He denies any recent surgeries or new diagnoses since his last visit, which was in April 2024. He does not have any current rashes; a previously prescribed treatment for urticaria successfully alleviated symptoms. He underwent a Cologuard test in May 2021, and it has been discussed that he may need a follow-up test, typically every three years. He was advised on the need for regular blood pressure monitoring at home, as a decline in his blood pressure with the current losartan regimen has been noted, and further lowering may risk inducing a cough. His blood tests in October 2022 indicated anemia and renal function with a creatinine level of 420/0.7. Health Maintenance Social History - The patient denies alcohol use. - No reported issues or surgeries for his family members. - Constipation runs in the family, but the patient reports passing bowel movements daily. - The patient expresses interest in taking vitamin D supplements. Review of Systems - Skin: Reports redness on the face, resembling rosacea, but no current rashes. - Gastrointestinal: Reports occasional heartburn, no difficulty in swallow, denies nausea or fever. - Genitourinary: No urinary issues, does not wake up at night to urinate. - Cardiovascular: Denies chest pain, palpitations, or any discomfort. - Neurological: No dizziness, no headaches, no episodes of passing out. - Respiratory: Reports significant coughing in cold weather. - HEENT: Hearing reported as good. - Musculoskeletal: Sometimes experiences laziness post meals, reports occasional constipation. - Allergic/Immunologic: History of penicillin allergy. Physical Exam General: Cooperative, healthy appearing, comfortable, no acute distress and well developed Orientation: Patient oriented x3 Limitations: No limitations Head: Normal to inspection Ears: Hearing grossly normal bilaterally Nose: Normal external nose present Face and sinus: Normal facial exam, noted history of rosacea-like symptoms, using Aveeno face wash for redness Eyes: Appearance normal, both eyes and all related structures, recent eye exam six months ago with no issues reported Neck: Normal visual inspection and Yes full ROM Respiratory: Normal respiratory effort and able to speak in complete sentences. Clear to auscultation bilaterally Cardiovascular: Regular rate and rhythm. Normal S1 and S2 GI: Normal to inspection. Soft to palpation and nontender Skin: No rashes or lesions noted, history of urticaria resolved with treatment Neuro: Patient oriented x3 Extremities: Normal to inspection, left toe slightly red but no pain reported Results - Blood work (January 2023): Hemoglobin A1c 6.4%, creatinine 420/07, showing concurrent anemia. - Cologuard test last conducted in May 2021. - Last blood work was performed in October 2022, indicating renal function creatinine level at 420 and hemoglobin A1c of 6.4%. Plan 1. 5%. Encourage consistent use of previously prescribed medications for erectile dysfunction while monitoring for side effects like heartburn. Consider reducing the dose of losartan to 50 mg if the patient's home blood pressure readings indicate consistently better control. Discuss the potential impact of cold weather on coughing and recommend trying [id number] vitamin D supplements as requested by the patient to aid in symptom management. The patient reports adequate symptom management with the use of aveeno face wash for facial redness resembling rosacea; however, consider dermatology referral if symptoms persist. Schedule a follow-up for dietary and medication adjustments if needed and re-evaluation of the patient's conditions.: Patient was informed and verbally consented to the use of an ambient scribe for clinic note documentation during this visit. Discussion Notes During this visit, I discussed the patient's progress and current management of his hypertension, with a recommendation to continue the medication losartan at 100 mg daily to aid in cardiovascular risk reduction and renal protection, given his history of diabetes. I emphasized the importance of regular blood pressure monitoring at home, highlighting the potential for losartan to cause cough, and advised the patient to report any significant changes. We also discussed the management of the patient's urticaria with previously prescribed medication and the consideration of a dermatology referral for persisting facial redness. For erectile dysfunction, the patient was advised to continue with current medications and to report any adverse effects such as heartburn. In addition, we discussed the patient's diet-controlled strategy for managing type 2 diabetes mellitus with a hemoglobin A1c goal of less than 6.5. A blood work recheck was discussed, including the scheduling of a follow-up appointment with urology focusing on the patient's erectile dysfunction management. Patient Instructions - Continue taking losartan 100 mg orally once daily. - Monitor blood pressure regularly at home and report any changes. - Maintain current diet for diabetes management. - Start taking vitamin D supplements once a week as discussed. - Consult with urology as previously scheduled for ongoing management of erectile dysfunction. - Follow up with dermatology if facial redness persists despite using recommended face wash. - Repeat Cologuard test for colorectal cancer screening in May 2024. - Return for a follow-up appointment to discuss blood test results and any further necessary treatment adjustments. Orders: Orders Hemoglobin A1c Today E11.65 - Type 2 diabetes mellitus with hyperglycemia Vitamin B12 and Folate Today E11.65 - Type 2 diabetes mellitus with hyperglycemia Prostate Specific Antigen Scr Today E11.65 - Type 2 diabetes mellitus with hyperglycemia Creatinine Urine Today E11.65 - Type 2 diabetes mellitus with hyperglycemia Complete Blood Count Auto Diff Today E11.65 - Type 2 diabetes mellitus with hyperglycemia Comprehensive Met. Panel Today E11.65 - Type 2 diabetes mellitus with hyperglycemia Free T4 (Free Thyroxine) Today E11.65 - Type 2 diabetes mellitus with hyperglycemia Lipid Panel Today E11.65 - Type 2 diabetes mellitus with hyperglycemia, E78.00 - Pure hypercholesterolemia, unspecified Thyroid Stimulating Hormone Today E11.65 - Type 2 diabetes mellitus with hyperglycemia Microalbumin, Random (w Creat) Today E11.65 - Type 2 diabetes mellitus with hyperglycemia Referrals Cologuard Test Z12.11 - Encounter for screening for malignant neoplasm of colon Medications: New metronidazole 1% (Metrogel) 1 appl topical BEDTIME 60 grams 0RF L71.9 - Rosacea, unspecified
== END 2024-05-19 15:39 | disposition home or self-care (01) ==
LOC: HO.HMCH 13:43
PROVIDERS: PCP Internal Medicine; Visit Provider Internal Medicine
DX: Z00.00 Encounter for general adult medical examination without abnormal findings (principal); E11.65 Type 2 diabetes mellitus with hyperglycemia; E78.00 Pure hypercholesterolemia, unspecified; I10 Essential (primary) hypertension; N52.9 Male erectile dysfunction, unspecified; K21.9 Gastro-esophageal reflux disease without esophagitis; Z12.11 Encounter for screening for malignant neoplasm of colon; L71.9 Rosacea, unspecified

== ENCOUNTER → 2024-05-19 13:42 | Outpatient (BNVA) | payer OTHER, SELFPAY | PROVIDERS: PCP Internal Medicine; Visit Provider Internal Medicine | DX: Z00.00 Encounter for general adult medical examination without abnormal findings (principal); E11.65 Type 2 diabetes mellitus with hyperglycemia; E78.00 Pure hypercholesterolemia, unspecified; I10 Essential (primary) hypertension; K21.9 Gastro-esophageal reflux disease without esophagitis; N52.9 Male erectile dysfunction, unspecified; L71.9 Rosacea, unspecified | CPT/HCPCS: 99396 ==

== ENCOUNTER 2024-08-11 16:14 | Outpatient (AMB) | payer OTHER, SELFPAY ==
--- NOTE | 2024-08-11 16:16 | A.OFFPC_ITS ---
Intake Visit Reasons: Cold Symptoms Allergies Penicillins Allergy (Verified 08/11/24 16:16) Swelling Tobacco use date assessed: 05/19/24 Dental Screening Dental Screen Date: 05/19/24 HPI Cold Symptoms HPI Details 1 week last thursday, chills , fever, co ugh chest congestion, sinus PFSH Medical History (Updated 08/11/24 @ 17:22 by Kamryn Gomez MD) Colon cancer screening Overweight (BMI 25.0-29.9) Hypercholesterolemia Hypertension Family History (Updated 05/19/24 @ 15:11 by Kamryn Gomez MD) Mother CVA (cerebral vascular accident) Social History (Updated 05/19/24 @ 15:12 by Kamryn Gomez MD) Housing: House Alcohol intake: current Alcohol intake frequency: holidays/special occasions only Alcohol type: beer Comment: once a week 2 drinks Patient Tobacco Use Status: Never used Tobacco Tobacco use type: Cigarette e-Cigarette/Vaping Use: Never Used Second Hand Smoke Exposure: No service: No Current occupational status: employed Cognitive needs: No Hearing needs: No Vision needs: No Questionnaire PHQ-9 Over the last 2 weeks, how often have you been bothered by any of the following problems? 1. Little interest or pleasure in doing things: nearly every day 2. Feeling down, depressed, or hopeless: nearly every day 3. Trouble falling or staying asleep, or sleeping too much: not at all 4. Feeling tired or having little energy: not at all 5. Poor appetite or overeating: not at all 6. Feeling bad about yourself - or that you are a failure or have let yourself or your family down: not at all 7. Trouble concentrating on things, such as reading the newspaper or watching television: not at all 8. Moving or speaking so slowly that other people could have noticed. Or the opposite - being so fidgety or restless that you have been moving around a lot more than usual: not at all 9. Thoughts that you would be better off or of hurting yourself in some way: not at all Total score: 6 Source: Developed by Drs. Twin Soto, Milly Shook, Kermit Doss and colleagues, with an educational donato from [employer]. Thrive Questionnaire Date Thrive assessed: 05/19/24 SKYLAR-7 AMB Questionnaire SKYLAR-7 Date SKYLAR - 7 assessed: 05/19/24 Source: Developed by Drs. Twin Soto, Milly Shook, Kermit Doss and colleagues, with an educational donato from [employer]. Physical exam (Primary Care) Tobacco/Smoking Status: Tobacco use Status Tobacco use date assessed 05/19/24 08/11/24 16:17 Patient Tobacco Use Status Never used Tobacco 08/11/24 16:17 Tobacco use type Cigarette 08/11/24 16:17 e-Cigarette/Vaping Use Never Used 08/11/24 16:17 PHQ-9: PHQ-9 Score PHQ-9: Total score 6 08/11/24 17:22 Thrive Assessment: Date of Thrive Assessment Date Thrive assessed 05/19/24 08/11/24 16:17 Telehealth Telehealth Telehealth Platform: Telephone Location of provider rendering services: practice address Location of patient: address on file Patient Identification confirmed using: Name, : Yes Telehealth method: voice only Patient verbally consented to treatment: Yes Patient verbally consented to billing insurance company: Yes Patient informed of any privacy concerns related to visit: Yes Minutes spent on Phone/Video with Pt.: 15 Coding Level of Care Code Tele Est Pt Level 3 (10673) Diagnoses Sinusitis J32.9 Assessment & Plan Assessment & Plan (1) Sinusitis: Code(s): J32.9 - Chronic sinusitis, unspecified Category: Medical Plan: For the sore throat can take Cepacol lozenges, discussed about Delsym to help with dry cough so she can rest and advised to increase oral fluids. Patient also can take Tylenol for chills and fever. Plan History of Present Illness The patient is a 64-year-old male presenting with symptoms suggestive of an upper respiratory infection, which began approximately one week ago with the onset of chills, fever, and congestion. The patient experienced chest congestion and productive cough with phlegm. He also reported intense sinus pressure and sneezing, resulting in irritation of his eyes, worsened by pre-existing glaucoma. Notably, some improvement was observed without antibiotic intervention, raising the possibility of a viral infection. Requests for earlier antibiotic treatment were complicated by communication delays. The patient had not undergone testing for COVID-19 but had exhibited significant symptoms consistent with respiratory infection, which have gradually ameliorated. Review of Systems - Constitutional: Reports chills and fever. - Respiratory: Reports cough and chest congestion; denies consistent productive cough at the time of discussion. - ENT: Reports sinus pressure and phlegm production. - Ophthalmological: Reports burning eyes; relates to sneezing affecting glaucoma. - Allergy/Immunologic: Denies allergies aside from penicillin contraindication. Plan For the suspected upper respiratory infection, I prescribed Zithromax, considering the patient's allergy to penicillin and gastrointestinal sensitivities. The initial dose of two tablets is followed by a four-day course of once-daily dosing. I advised the patient to maintain hydration and utilize acetaminophen as needed for fever, alongside lozenges for throat discomfort. Mucinex may be used for a productive cough. A flu, RSV, and COVID-19 test was suggested if symptoms persisted. I propose establishing secure communication through a patient portal to manage his ongoing diabetes and other chronic conditions effectively. The aim is to initiate a prompt response for future medical needs. Patient was informed and verbally consented to the use of an ambient scribe for clinic note documentation during this visit. Discussion Notes During the consultation, I addressed the patient's symptoms, which aligned with an upper respiratory tract infection, potentially of viral origin. Due to the recent improvement in symptoms without antibiotics, I discussed the balance of supporting care versus initiating antibiotic therapy. Noting the underlying medical complexities, including diabetes and GERD, I outlined the decision to use Zithromax, discussing its suitability given the patient's allergy profile and gastrointestinal concerns. We discussed supportive care, such as adequate fluid intake, Tylenol for fever management, and cough suppressant options. Potential complications due to diabetes necessitate close monitoring of symptoms. For navigational improvements in care access, implementing a patient portal was proposed, with follow-ups set to ensure the patient remained well- supported in managing his condition. Patient Instructions - Take Zithromax as prescribed: two tablets on the first day, then one tablet each day for the next four days. - Drink plenty of fluids each day. - Use Tylenol to manage fever if needed. - Use lozenges for throat discomfort. - Mucinex may be used if the cough is productive. - Set up a patient portal for faster communication and managing your health record. - Test for COVID-19, flu, or RSV if symptoms persist. - Contact us if symptoms worsen or do not improve with current treatment. Medications: New azithromycin (Zithromax) For 250 mg dose pack: take 500 mg today (day 1), then 250 mg for 4 days (days 2-5) PO 6 tabs 0RF J32.9 - Chronic sinusitis, unspecified
== END 2024-08-11 18:08 | disposition home or self-care (01) ==
LOC: HO.HMCH 16:14
PROVIDERS: PCP Internal Medicine; Visit Provider Internal Medicine
DX: J32.9 Chronic sinusitis, unspecified (principal)

== ENCOUNTER → 2024-08-11 16:14 | Outpatient (BNVA) | payer OTHER, SELFPAY | PROVIDERS: PCP Internal Medicine; Visit Provider Internal Medicine | DX: Z13.89 Encounter for screening for other disorder (principal) ==

== ENCOUNTER 2024-11-02 15:12 | Outpatient (AMB) | payer OTHER, SELFPAY ==
--- NOTE | 2024-11-02 15:32 | MHC.OFFVIS ---
Intake Visit Reasons: follow up Intake Note: Pt presents to the office today for follow up for erectile dysfunction Urology meds : Sildenafil,Tadalafil Blood thinner none Braid Folder Required: No Accompanied by: Self / Same As Patient Allergies Penicillins Allergy (Verified 11/02/24 15:35) Swelling HPI Comments Details: Hedy is a pleasant Pashto male. He is a patient of Dr. Gomez. He seen for the following urologic conditions - erectile dysfunction in setting of diabetes - Peyronie's disease Three-month follow-up daily tadalafil with on demand sildenafil Significant improvement Discussed his Peyronie's Demonstrated penile pump At this point he will continue with on demand therapy Erectile dysfunction in setting of diabetes Prior use of sildenafil and tadalafil in on demand setting No previous use of daily Previous reasonable responses which have gradually diminished over the past year Initiate daily tadalafil with on demand sildenafil Peyronie's disease Subclinical Has been stable with long-term management of vitamin-E 400 units daily Had been started on pentoxifylline t.i.d. with PCP Does have some heartburn Initiate b.i.d. therapy [facility] Medical History (Updated 08/11/24 @ 17:22 by Kamryn Gomez MD) Colon cancer screening Overweight (BMI 25.0-29.9) Hypercholesterolemia Hypertension Family History (Updated 05/19/24 @ 15:11 by Kamryn Gomez MD) Mother CVA (cerebral vascular accident) Social History (Updated 05/19/24 @ 15:12 by Kamryn Gomez MD) Housing: House Alcohol intake: current Alcohol intake frequency: holidays/special occasions only Alcohol type: beer Comment: once a week 2 drinks Patient Tobacco Use Status: Never used Tobacco Tobacco use type: Cigarette e-Cigarette/Vaping Use: Never Used Second Hand Smoke Exposure: No service: No Current occupational status: employed Cognitive needs: No Hearing needs: No Vision needs: No Review of Systems Const Denies chills and Denies fever(s) Card Reports no additional complaints and Denies syncope Resp Denies cough GI Denies abdominal pain and Denies heartburn Reports as per HPI and Denies change in libido Neuro Denies syncope Psych Denies change in libido Endo Denies change in libido Physical Exam Const General: cooperative, healthy appearing, comfortable and no acute distress Orientation/consciousness: patient oriented x3 HEENT Face and sinus: Yes normal facial exam Mouth: moist mucous membranes Neck Neck: Yes normal visual inspection, Yes full ROM and Yes trachea midline Chest Chest palpation & inspection: normal inspection of the chest Resp Effort & Inspection: normal respiratory effort, able to speak in complete sentences and no respiratory distress GI Inspection: Yes normal to inspection Back/Spine/Pelvis Cervical Spine: normal cervical lordosis Thoracic/Lumbar Spine: thoracic and lumbar spine normal to inspection Skin General skin exam: no rashes or lesions noted Neuro General: patient oriented x3, gait normal, tone normal and moves all extremities Extrem General: Yes normal to inspection and Yes capillary refill normal Assessment & Plan Assessment & Plan (1) Peyronie disease: Code(s): N48.6 - Induration penis plastica Category: Medical (2) Erectile dysfunction: Code(s): N52.9 - Male erectile dysfunction, unspecified Category: Medical Plan Six-month follow-up Refill medications Medications: Changed From pentoxifylline ER must administer with a meal/food 400 mg PO TID 90 tabs 2RF N48.6 - Induration penis plastica To pentoxifylline ER must administer with a meal/food 400 mg PO BID 180 tabs 2RF 90 days N48.6 - Induration penis plastica Refilled tadalafil [facility] DR33 [id number] 5 mg PO DAILY 90 tabs 1RF sexual activity 90 days E11.69 - Type 2 diabetes mellitus with other specified complication, N52.1 - Erectile dysfunction due to diseases classified elsewhere Patient Instructions: This note is constructed using voice recognition software. While every effort has been made to ensure accuracy dot etcher errors may have been included. Imaging studies, laboratory and physical exam results were discussed and reviewed in detail. No major barriers to patient understanding were identified. An opportunity to ask questions regarding the treatment plan was provided. All questions were answered. The patient expressed understanding and agreement with the above treatment plan. The patient is aware they should contact our office by phone for worsening of their current condition or the appearance of new urologic symptoms. Compliance is encouraged with any medications and followup testing that is ordered. It is a privilege to participate in the urologic care of your patient. If you have any questions or concerns regarding treatment for the above conditions, or other urologic issues, please do not hesitate to contact me. The office telephone contact is [phone]. Sincerely, Dr Luis Luna MD, [facility] - Urology Compassionate Specialist Care for the Genitourinary System Coding Level of Care Code Est Pt Level 3 (50800) Complex EM visit Add On G2211 Diagnoses Peyronie disease N48.6 Erectile dysfunction N52.9
== END 2024-11-02 16:14 | disposition home or self-care (01) ==
LOC: HO.HUSH 15:12
PROVIDERS: PCP Internal Medicine; Visit Provider Urology
DX: N48.6 Induration penis plastica (principal); N52.9 Male erectile dysfunction, unspecified
CPT/HCPCS: 99213

== ENCOUNTER → 2024-11-02 15:12 | Outpatient (BNVA) | payer OTHER, SELFPAY | PROVIDERS: PCP Internal Medicine; Visit Provider Urology | DX: N48.6 Induration penis plastica (principal); N52.9 Male erectile dysfunction, unspecified | CPT/HCPCS: 99212 ==

== ENCOUNTER 2024-11-24 14:09 | Outpatient (AMB) | payer OTHER, SELFPAY ==
[2024-11-24 14:14] VITALS: BP 138/82; PULSE 80; TEMP 36.3; O2SAT 98; BMI 24.8
--- NOTE | 2024-11-24 14:14 | A.OFFPC_ITS ---
Vital Signs 11/24/24 14:14 Height 5 ft 10 in Weight 173 lb BMI 24.8 BP 138/82 Blood Pressure Location Lt brachial Position Sitting Pulse 80 Pulse Source Pulse Oximeter Temp 97.3 F Temp Source Temporal Artery Scan Pulse Oximetry (%) 98 Oxygen Delivery Method Room Air Intake Visit Reasons: 6mth f/u DM Allergies Penicillins Allergy (Verified 11/24/24 14:23) Swelling Tobacco use date assessed: 11/24/24 Dental Screening Dental Screen Date: 11/24/24 Did you have a dental visit in the last 12 months?: Yes Did you have a dental problem in the last 6 months where you did not have access to dental care?: No Was dental information given to patient?: Patient has dentist HPI 6mth f/u DM HPI Details History of Present Illness The patient is a 64-year-old male presenting for a follow-up visit. He has a history of hypertension, hypercholesterolemia, diabetes mellitus, and gastroesophageal reflux disease. The patient has experienced a 6-pound weight loss recently. His diabetes is currently diet-controlled, with a hemoglobin A1c of 6.4%. The goal is to maintain an A1c of less than 6.5%. The patient is on losartan 100 mg once daily for hypertension management. For hypercholesterolemia, the last LDL cholesterol was 118 mg/dL, with a target of less than 100 mg/dL. He has been experiencing erectile dysfunction and is currently on sildenafil and tadalafil. He follows up with urology and is on pentosafrine. The patient was seen in August for sinus problems and has been noted to have anemia based on blood work from January 2023. Health Maintenance - Colon cancer screening with [facility] completed in May 2024 Social History Review of Systems Physical Exam Results - Labs: Hemoglobin A1c of 6.4% - Labs: LDL cholesterol of 118 mg/dL - Labs: Anemia noted in January 2023 bl ood work Plan Patient was informed and verbally consented to the use of an ambient scribe for clinic note documentation during this visit. 1. Essential Hypertension The patient is currently on losartan 100 mg once daily for hypertension m anagement. 2. Hypercholesterolemia The patient's last LDL cholesterol was 118 mg/dL, with a target of less than 100 mg/dL. He was advised to get blood work done to monitor cholesterol levels. 3. Type 2 Diabetes Mellitus The patient's diabetes is diet-controlled, with a hemoglobin A1c of 6.4%. The goal is to maintain an A1c of less than 6.5%. 4. Erectile Dysfunction The patient is on sildenafil and tadalafil for erectile dysfunction and follows up with urology. He is also on pentosafrine. 5. Anemia Anemia was noted in the patient's blood work from January 2023. Further evaluation and management are necessary. Discussion Notes Patient Instructions - Continue current medications as prescr ibed. - Schedule follow-up appointments with tangela simeon. - Get blood work done to monitor cholest jose levels. [facility] Medical History Colon cancer screening Overweight (BMI 25.0-29.9) Hypercholesterolemia Hypertension Family History Mother CVA (cerebral vascular accident) Social History Housing: House Alcohol intake: current Alcohol intake frequency: holidays/special occasions only Alcohol type: beer Comment: once a week 2 drinks Patient Tobacco Use Status: Never used Tobacco Tobacco use type: Cigarette e-Cigarette/Vaping Use: Never Used Second Hand Smoke Exposure: No service: No Current occupational status: employed Cognitive needs: No Hearing needs: No Vision needs: No Questionnaire PHQ-9 Over the last 2 weeks, how often have you been bothered by any of the following problems? 1. Little interest or pleasure in doing things: nearly every day 2. Feeling down, depressed, or hopeless: nearly every day 3. Trouble falling or staying asleep, or sleeping too much: not at all 4. Feeling tired or having little energy: not at all 5. Poor appetite or overeating: not at all 6. Feeling bad about yourself - or that you are a failure or have let yourself or your family down: not at all 7. Trouble concentrating on things, such as reading the newspaper or watching television: not at all 8. Moving or speaking so slowly that other people could have noticed. Or the opposite - being so fidgety or restless that you have been moving around a lot more than usual: not at all 9. Thoughts that you would be better off or of hurting yourself in some way: not at all Total score: 6 Source: Developed by Drs. Twin Soto, Milly Shook, Kermit Doss and colleagues, with an educational donato from [employer]. Thrive Questionnaire Date Thrive assessed: 05/19/24 I am a: Patient What is your living situation today?: I have a steady place to live Within the past 12 months, did the food you bought not last and you didn't have the money to get more?: Never true Within the past 12 months, did you worry whether your food would run out before you got money to buy more?: I choose not to answer this question Do you have trouble paying for medicines?: No Do you have trouble getting transportation to medical appointments?: No Do you have trouble paying your heating and electricity bill?: No Do you have trouble taking care of your child, family member or friend?: No Do you have trouble with day-to-day activities such as bathing, preparing meals, shopping, managing finances, etc.?: I choose not to answer this question Are you currently unemployed and looking for a job?: No Are you interested in more education?: No Please select the resources that you would like help with: None Currently or been in a relationship where the following occur: No concerns reported THRIVE Score: 0 AUDIT C Alcohol Use Questionnaire (AUDIT-C) 1. How often do you have a drink containing alcohol?: 2-4 times a month 2. How many drinks containing alcohol do you have on a typical day when you are drinking?: 1 or 2 3. How often do you have six or more drinks on one occasion?: Never Total Score: 2 SKYLAR-7 AMB Questionnaire SKYLAR-7 Date SKYLAR - 7 assessed: 05/19/24 Feeling nervous, anxious, or on edge: 0 = Not at all Not being able to stop or control worryin = Not at all Worrying too much about different things: 0 = Not at all Trouble relaxin = Not at all Being so restless that it is hard to sit still: 0 = Not at all Becoming easily annoyed or irritable: 0 = Not at all Feeling afraid as if something awful might happen: 0 = Not at all Total SKYLAR-7 score (0-4 normal; 5-9 mild; 10-14 moderate; 15-21 severe): 0 Source: Developed by Drs. Twin Soto, Milly Shook, Kermit Doss and colleagues, with an educational donato from [employer]. Physical exam (Primary Care) Vital Signs: Last Vital Signs Temp 97.3 F 11/24/24 14:14 Pulse 80 11/24/24 14:14 BP 138/82 11/24/24 14:14 Pulse Ox 98 11/24/24 14:14 Oxygen Delivery Method Room Air 11/24/24 14:14 BMI result Body Mass Index 24.8 Tobacco/Smoking Status: Tobacco use Status Tobacco use date assessed 11/24/24 11/24/24 14:25 Patient Tobacco Use Status Never used Tobacco 11/24/24 14:25 Tobacco use type Cigarette 11/24/24 14:25 e-Cigarette/Vaping Use Never Used 11/24/24 14:25 PHQ-9: PHQ-9 Score PHQ-9: Total score 6 11/24/24 14:32 Thrive Assessment: Date of Thrive Assessment Date Thrive assessed 05/19/24 11/24/24 14:25 Currently or been in a relationship where the following occur: No concerns reported Const General: alert; No acute distress Eyes Conjunctivae: conjunctivae normal Resp Auscultation: clear to auscultation bilaterally Cardio Rate: regular rate Rhythm: regular rhythm GI Inspection: Yes normal to inspection Extrem General: Yes normal to inspection and No edema Results AMB Hemoglobin A1c AMB Hemoglobin A1c 6.4 % Last Edit by Leah Meredith CMA on 11/24/24 14:27 Results Reviewed Results Reviewed: Laboratory Last Values Hgb A1c (Clinic) 6.4 % (4.0-6.0) H 11/24/24 14:25 Coding Level of Care Code Est Pt Level 4 (71966) Complex EM visit Add On G2211 Diagnoses Type 2 diabetes mellitus with hyperglycemia E11.65 Primary hypertension I10 Hypertension type: primary hypertension Hypercholesterolemia E78.00 Gastroesophageal reflux disease without esophagitis K21.9 Esophagitis presence: without esophagitis Peyronie disease N48.6 Anemia, unspecified type D64.9 Anemia type: unspecified type Assessment & Plan Assessment & Plan (1) Type 2 diabetes mellitus with hyperglycemia: Comment: Dr. Merly Loya and [facility] Code(s): E11.65 - Type 2 diabetes mellitus with hyperglycemia Category: Medical Plan: Decrease the amount of carbohydrate intake, pasta, bread, rice and potatoes are all sugar and that is aside from all the sweet stuff, remember that fruits are good but they are Sweet also. Hemoglobin A1c goal of less than 6.5. Patient is diet controlled (2) Hypertension: Code(s): I10 - Essential (primary) hypertension Category: Medical Qualifiers: Hypertension type: primary hypertension Qualified Code(s): I10 - Essential (primary) hypertension Plan: Continue with blood pressure medication. Decrease salt intake and exercise on losartan 100 mg once a day (3) Hypercholesterolemia: Code(s): E78.00 - Pure hypercholesterolemia, unspecified Category: Medical Plan: Avoid fried foods, chicken skin, eggs, butter margarine, pastries and meat. Be it pork or beef they have a lot of cholesterol patient was advised to get the blood work done. LDL goal of less than 100. (4) GERD (gastroesophageal reflux disease): Code(s): K21.9 - Gastro-esophageal reflux disease without esophagitis Category: Medical Qualifiers: Esophagitis presence: without esophagitis Qualified Code(s): K21.9 - Gastro-esophageal reflux disease without esophagitis Plan: Avoid the foods that causes that usually spicy foods, tomato products, juices, coffee, soda and foods that your sensitive to. After eating do not lie down, allow 3-4 hours before in lie down. And keep the head of bed above 30 degrees to avoid the acid from going up. (5) Peyronie disease: Code(s): N48.6 - Induration penis plastica Category: Medical Plan: Patient follows up with urology on pentoxifylline (6) Anemia: Code(s): D64.9 - Anemia, unspecified Category: Medical Qualifiers: Anemia type: unspecified type Qualified Code(s): D64.9 - Anemia, unspecified Plan: Continue to monitor for now Orders: Orders AMB Hemoglobin A1c Today Z13.9 - Encounter for screening, unspecified Medications: Refilled losartan 100 mg PO DAILY 90 tabs 1RF 90 days I10 - Essential (primary) hypertension
== END 2024-11-24 15:12 | disposition home or self-care (01) ==
LOC: HO.HMCH 14:09
PROVIDERS: PCP Internal Medicine; Visit Provider Internal Medicine
DX: E11.65 Type 2 diabetes mellitus with hyperglycemia (principal); I10 Essential (primary) hypertension; E78.00 Pure hypercholesterolemia, unspecified; K21.9 Gastro-esophageal reflux disease without esophagitis; N48.6 Induration penis plastica; D64.9 Anemia, unspecified; Z13.9 Encounter for screening, unspecified

== ENCOUNTER → 2024-11-24 14:09 | Outpatient (BNVA) | payer OTHER, SELFPAY | PROVIDERS: PCP Internal Medicine; Visit Provider Internal Medicine | DX: E11.65 Type 2 diabetes mellitus with hyperglycemia (principal); I10 Essential (primary) hypertension; E78.00 Pure hypercholesterolemia, unspecified; K21.9 Gastro-esophageal reflux disease without esophagitis; N52.9 Male erectile dysfunction, unspecified; N48.6 Induration penis plastica; Z79.899 Other long term (current) drug therapy | CPT/HCPCS: 83036; 99212 ==